=== PATIENT | male | born 1960 | race Hispanic/Latino ===

== ENCOUNTER → 2017-05-24 | Outpatient (CLI) | payer OTHER, MEDICARE | END | disposition home or self-care (01) | LOC: RAH 07:24 | PROVIDERS: ATTEND Internal Medicine Gastroenterology | DX: K86.1 Other chronic pancreatitis (principal); K76.0 Fatty (change of) liver, not elsewhere classified; K59.00 Constipation, unspecified; I70.0 Atherosclerosis of aorta; R31.9 Hematuria, unspecified | CPT/HCPCS: 74176 ==